=== PATIENT | female | born 1960 | race Asian ===

== ENCOUNTER → 2017-09-24 15:39 | Outpatient (CLI) | payer BC | END | disposition home or self-care (01) | LOC: D.MAMMO 08-13 08:15 | DX: Z12.31 Encounter for screening mammogram for malignant neoplasm of breast (principal) ==

== ENCOUNTER → 2017-11-05 19:32 | Outpatient (CLI) | payer BC | END | disposition home or self-care (01) | LOC: D.MAMMO 08:30 | DX: R92.8 Other abnormal and inconclusive findings on diagnostic imaging of breast (principal) ==

== ENCOUNTER → 2018-05-19 08:34 | Outpatient (CLI) | payer MEDICAID | END | disposition home or self-care (01) | LOC: D.US 08:00 | DX: R10.11 Right upper quadrant pain (principal) ==

== ENCOUNTER → 2018-07-02 06:41 | Outpatient (CLI) | payer MEDICAID | END | disposition home or self-care (01) | LOC: D.NM 06:41 | DX: K80.80 Other cholelithiasis without obstruction (principal); R10.11 Right upper quadrant pain ==

== ENCOUNTER 2019-01-20 19:00 | Outpatient (CLI) | payer MEDICAID | END 2019-01-20 23:59 | disposition home or self-care (01) | LOC: D.MAMMO 19:00 | PROVIDERS: ATTEND Family Medicine | DX: R92.8 Other abnormal and inconclusive findings on diagnostic imaging of breast (principal) ==